=== PATIENT | male | born 1950 | race Caucasian/White ===

== ENCOUNTER 2021-06-01 19:01 | Emergency (ER) | payer MEDICARE ==
[~2021-06-01 19:01] MED LIST: ACIPHEX20 MG PO; B12,B-12,B 12500 MC1 PO; NATURE'S BLEND F1 MG PO; OMEPRAZOLE20 M3 PO; VITAMIN D32000 UNI1 PO
[2021-06-01] MEDS ORDERED: WALKER (22:06)
== END 2021-06-01 22:10 | disposition home or self-care (01) ==
LOC: ED 19:01
DX: S80.212A Abrasion, left knee, initial encounter (principal); M25.362 Other instability, left knee; Z98.890 Other specified postprocedural states; Z79.899 Other long term (current) drug therapy; Z90.89 Acquired absence of other organs; W19.XXXA Unspecified fall, initial encounter; Y93.89 Activity, other specified; Y92.89 Other specified places as the place of occurrence of the external cause; Y99.8 Other external cause status

== ENCOUNTER 2021-09-23 15:10 | Emergency (ER) | payer MEDICARE ==
[~2021-09-23] VITALS: Ht 193 cm; Wt 136.1 kg
[~2021-09-23 15:10] MED LIST changes: +WALKER
[2021-09-23 16:11] LABS: BASO % 0.3 % (0.0-1.0); EOS % 0.3 % (1.0-4.0); HEMATOCRIT 45.5 % (42.0-52.0); LYMPH # 0.5 10*3/uL (1.3-4.4); LYMPH % 7.8 % (27.0-41.0); MEAN CELL VOLUME 87.2 fl (80.0-94.0); MEAN CORPUSCULAR HGB 29.1 pg (27.0-31.0); MEAN CORPUSCULAR HGB CONC 33.4 g/dl (33.0-37.0); MEAN PLATELET VOLUME 9.7 fl (9.6-12.3); MONO # 1.1 10*3/uL (0.1-1.0); MONO % 18.2 % (3.0-9.0); NEUT # 4.5 10*3/uL (2.3-7.9); NEUT % 73.1 % (47.0-73.0); PLATELET COUNT AUTOMATED 185 10*3/uL (130-400); RED BLOOD COUNT 5.22 10*6/uL (4.50-5.90); RED CELL DISTRI WIDTH 13.2 % (0-14.5); WHITE BLOOD COUNT 6.2 10*3/uL (4.8-10.8)
[2021-09-23 16:37] LABS: ALBUMIN 3.5 gm/dl (3.1-4.5); ALKALINE PHOSPHATASE 75 U/L (45-117); BUN 14 mg/dl (7-24); CHLORIDE 104 mmol/L (98-107); CREATININE 1.19 mg/dL (0.70-1.30); LIPASE 105 U/L (73-393); SGOT/AST 26 IU/L (3-35); SGPT/ALT 31 U/L (12-78); SODIUM 137 mmol/L (136-145); TOTAL PROTEIN 6.9 gm/dL (6.4-8.2)
[2021-09-23 17:40] LABS: ACT PARTIAL THROMBO TIME 27.3 SECONDS (20.0-32.1); INTERNATIONAL NORM RATIO 1.2 (2.0-3.5)
== END 2021-09-23 17:57 | disposition home or self-care (01) ==
LOC: ED 15:10
PROVIDERS: Emergency Medicine
DX: U07.1 COVID-19 (principal); B34.9 Viral infection, unspecified; Z79.899 Other long term (current) drug therapy; Z90.89 Acquired absence of other organs